=== PATIENT | female | born 1960 | race Caucasian/White ===

== ENCOUNTER → 2019-05-14 00:01 | Outpatient (RCR) | payer MEDICAID, SELFPAY | LOC: WOUND 04-16 11:30 | PROVIDERS: Family Provider Family Medicine; Visit Provider Podiatrist Foot & Ankle Surgery | DX: T63.301A Toxic effect of unspecified spider venom, accidental (unintentional), initial encounter (principal); Y92.9 Unspecified place or not applicable | CPT/HCPCS: 93922 ==

== ENCOUNTER 2019-05-28 12:23 | Day surgery (SDC) | payer MEDICAID, SELFPAY ==
[2019-05-24 10:45] VITALS: BMI 51.2
--- NOTE | 2019-05-24 11:05 | ANES.PREANES ---
Pre-Anesthetic Assessment Pre-Anesthetic Assessment: Height/Weight: Height 1.7 m Weight 148.325 kg Preop Diagnosis: hematochezia Proposed Procedure: Operation Date: 05/28/19 14:10 Proposed Procedures p EGD 02706, 11447 K21.9, Z12.11(Not Applicable) - Alex Harris MD s Colonoscopy(Not Applicable) - Alex Harris MD Familial anesthetic complications: No trouble Social: Social History: No alcohol and No tobacco Exam: Pre-Anes Outpt Exam: alert, oriented x 3, clear to auscultation bilaterally and regular rate & rhythm Airway: Cervical ROM: WNL MP: 1 Dentition: Full Pulmonary: Pulmonary: COPD CV/HEM: CV/HEM: Afib, CHF and HTN : : None reported Hepatic: Hepatic: None reported GI: GI: None reported Metabolic: Metabolic: Morbid obesity and Thyroid Musc/skel: Musc/skel: Fibromyalgia Neuropsych: Neuropsych: None reported Anesthetic Plan: ASA status: III Anesthesia: MAC Risk of > 500 ml blood loss (7ml/kg in children): No PFSH Anesthesia PFSH: Social History (Updated 05/24/19 @ 10:33 by Luiza Andersen RN) Smoking and tobacco status: never smoked Data Anesthesia Cardiac Studies: No Data to Display
[2019-05-28 13:20] VITALS: BP 117/64; PULSE 60; RESP 18; TEMP 36.4; O2SAT 95
[2019-05-28] MEDS: sodium chloride 0.9% 1,000 ML 30 ML IV (13:28)
--- NOTE | 2019-05-28 13:28 | PM.HPUD ---
H&P update H&P Update: DATE OF SURGERY/PROCEDURE: 05/28/19 DATE H&P PERFORMED: 05/10/19 H&P UPDATE INFORMATION: H&P completed within last 30 days and No changes to prior documentation PREOP DIAGNOSIS: Anemia and bleeding per rectum PLANNED PROCEDURE: Operation Date: 05/28/19 13:40 Proposed Procedures p EGD 41047, 38789 K21.9, Z12.11(Not Applicable) - Alex Harris MD s Colonoscopy(Not Applicable) - Alex Harris MD Full H&P Medications/Allergies: Current Medications: Current Medications Generic Name Dose Route Start Last Admin Trade Name Freq PRN Reason Stop Dose Admin Sodium Chloride 1,000 mls @ 30 ml s/hr 05/28/19 12:15 05/28/19 13:28 Sodium Chloride 0.9% IV 30 mls/hr .Q24H RENALDO Administration Perinent History: Social History: Social History Smoking and tobacco status: never smoked
[2019-05-28] MEDS: midazolam 1 mg/mL INJ 2 mL 2 MG IVP (13:37)
[2019-05-28 14:18] VITALS: BP 139/73; PULSE 66; RESP 18; TEMP 36.6; O2SAT 96
[2019-05-28 14:45] VITALS: BP 139/73; PULSE 70; RESP 18; O2SAT 95
--- NOTE | 2019-05-28 14:53 | ANE.PACU ---
 Inpatient post-anesthesia follow up: Airway intact: Yes Vital signs: Temperature 97.9 F Pulse Rate [Right Radial] 66 Respiratory Rate 18 Blood Pressure [Ri ght Arm] 139/73 Pulse Oximetry 96 Oxygen Delivery Me thod Room Air Oxygen Flow Rate Fraction of Inspir ed Oxygen Hydration adequate: Yes Nausea and vomiting: No Mental status: Baseline
== END 2019-05-28 15:00 | disposition home or self-care (01) ==
PROVIDERS: Family Provider Family Medicine; PCP Family Medicine; Visit Provider Surgery
PROC: 0DJ08ZZ Inspection of Upper Intestinal Tract, Via Natural or Artificial Opening Endoscopic (ICD-10-PCS; CPT 43235; principal; 2019-05-28 13:30)
PROC: 0DJD8ZZ Inspection of Lower Intestinal Tract, Via Natural or Artificial Opening Endoscopic (ICD-10-PCS; CPT 45378; 2019-05-28 13:30)
DX: Z12.11 Encounter for screening for malignant neoplasm of colon (principal); D64.9 Anemia, unspecified; K21.9 Gastro-esophageal reflux disease without esophagitis; E78.5 Hyperlipidemia, unspecified; M19.90 Unspecified osteoarthritis, unspecified site; I48.91 Unspecified atrial fibrillation; F32.9 Major depressive disorder, single episode, unspecified; F41.1 Generalized anxiety disorder; E03.9 Hypothyroidism, unspecified; Z79.01 Long term (current) use of anticoagulants; Z79.891 Long term (current) use of opiate analgesic; I11.0 Hypertensive heart disease with heart failure; I50.9 Heart failure, unspecified; E66.01 Morbid (severe) obesity due to excess calories; Z68.43 Body mass index [BMI] 50.0-59.9, adult; M79.7 Fibromyalgia
CPT/HCPCS: 45378; 12345; J2001; J2250; J2704; J7030

== ENCOUNTER 2019-06-25 10:52 | Outpatient (CLI) | payer MEDICAID, SELFPAY | END 2019-06-25 10:53 | disposition home or self-care (01) | LOC: RAD 10:52 | PROVIDERS: Family Provider Family Medicine; PCP Family Medicine; Visit Provider Podiatrist Foot & Ankle Surgery | DX: Z76.89 Persons encountering health services in other specified circumstances (principal) ==

== ENCOUNTER 2019-07-17 11:41 | Day surgery (SDC) | payer MEDICAID, SELFPAY ==
[2019-07-12 14:02] VITALS: BMI 50.8
[2019-07-17 12:20] VITALS: BP 141/61; PULSE 58; RESP 18; TEMP 36.6; O2SAT 95
[2019-07-17] MEDS: sodium chloride 0.9% 1,000 ML 30 ML IV (12:27)
--- NOTE | 2019-07-17 12:51 | W.PM.OPSUD ---
Surgery/Procedure H&P Update DATE OF PROCEDURE: July 17, 2019 DATE H&P PERFORMED: 07/12/19 H&P UPDATE INFORMATION: I have reviewed H&P completed within last 30 days, I have examined patient prior to procedure and No changes to prior documentation PREOP DIAGNOSIS: Wound left thigh PLANNED PROCEDURE: Operation Date: 07/17/19 13:10 Proposed Procedures p Debridement of left thigh wound 10560 T63.301A(Left) - Lexa Barba MD
--- NOTE | 2019-07-17 13:43 | P.ANESASSM_ITS ---
Pre-Anesthetic Assessment Pre-Anesthetic Assessment: Height/Weight: Height 1.7 m Weight 147.418 kg Temp Pulse Resp BP Pulse Ox 97.8 F 58 L 18 141/61 95 07/17/19 12:20 07/17/19 12:20 07/17/19 12:20 07/17/19 12:20 07/17/19 12:20 Preop Diagnosis: Wound left thigh Proposed Procedure: Operation Date: 07/17/19 13:10 Proposed Procedures p Debridement of left thigh wound 82539 T63.301A(Left) - Lexa Barba MD Familial anesthetic complications: denies Was Beta Layne taken within 24 h ours: Yes Last intake: Intake Last Liquid Date 07/16/19 Last Liquid Time 22:30 Last Solid Date 07/16/19 Last Solid Time 22:30 Exam: Pre-Anes Outpt Exam: alert, oriented x 3 and clear to auscultation bilaterally Airway: Submandibular: WNL Cervical ROM: WNL MP: 1 History/ROS: No significant history except as noted Pulmonary: Pulmonary: COPD and SOB CV/HEM: CV/HEM: Afib and HTN : : None reported Hepatic: Hepatic: None reported GI: GI: None reported Metabolic: Metabolic: Morbid obesity and Thyroid Musc/skel: Musc/skel: Fibromyalgia Neuropsych: Neuropsych: Anxiety and Depression Anesthetic Plan: ASA status: 3 Anesthesia: Anesthesia Evaluation and MAC Risk of > 500 ml blood loss (7ml/kg in children): No Meds/Allergies Current Medications: Current Medications Generic Name Dose Route Start Last Admin Trade Name Freq PRN Reason Stop Dose Admin Sodium Chloride 1,000 mls @ 30 ml s/hr 07/17/19 12:00 07/17/19 12:27 Sodium Chloride 0.9% IV 07/18/19 11:59 30 mls/hr .Q24H RENALDO Administration PFSH Anesthesia PFSH: Social History Smoking and tobacco status: never smoked Alcohol intake: never Data Anesthesia Cardiac Studies: No Data to Display
[2019-07-17 14:42] VITALS: BP 129/71; PULSE 70; RESP 18; TEMP 36.6; O2SAT 96
--- NOTE | 2019-07-17 15:08 | PM.OP ---
Operative Report Date of procedure: July 17, 2019 Pre-op Diagnosis: Chronic wound left thigh measuring 15 x 1 x 1 cm Post-op diagnosis: same Procedure Done: Excisional debridement of chronic wound left thigh measuring 15 x 3 x 3cm Pathology: none sent Surgeon: Lexa Barba Estimated blood loss (mL): 10 Condition: stable Disposition: PACU Procedure: The patient was taken to the operating room and placed in the left lateral position under MAC after IV antibiotic had been administered. The chronic wound on the left thigh measured 15 cm deep and 1 x 1 cm at the skin level. Using 15 blade excisional debridement of chronic scar tissue was performed until punctate bleeding was noted from the wound edges. Excision was carried to the depth of the wound with the final wound measuring 15 x 3 x 3 cm. The wound was irrigated saline, hemostasis ensured and packed with Kerlix gauze and covered with ABDs. The patient was transferred to same-day surgery in stable condition. The patient will follow-up in wound care clinic
[2019-07-17 15:20] VITALS: BP 138/87; PULSE 65; RESP 18; O2SAT 98
[2019-07-17] MEDS: HYDROcodone-acetaminophen 5-325 mg Tablet 1 TAB PO (16:00)
== END 2019-07-17 16:15 | disposition home or self-care (01) ==
PROVIDERS: Family Provider Family Medicine; PCP Family Medicine; Visit Provider Surgery
PROC: (CPT 11044; principal; 2019-07-17 13:10)
DX: S71.102A Unspecified open wound, left thigh, initial encounter (principal); X58.XXXA Exposure to other specified factors, initial encounter; J44.9 Chronic obstructive pulmonary disease, unspecified; I48.91 Unspecified atrial fibrillation; I10 Essential (primary) hypertension; E66.01 Morbid (severe) obesity due to excess calories; Z68.43 Body mass index [BMI] 50.0-59.9, adult; M79.7 Fibromyalgia; F41.9 Anxiety disorder, unspecified; F32.9 Major depressive disorder, single episode, unspecified; E78.5 Hyperlipidemia, unspecified; Z86.73 Personal history of transient ischemic attack (TIA), and cerebral infarction without residual deficits
CPT/HCPCS: 11044; 11047 ×2; 12345; 96365; J2001; J2250; J2704; J3010; J7030

== ENCOUNTER 2020-02-07 10:46 | Outpatient (CLI) | payer MEDICAID, SELFPAY ==
--- NOTE | 2020-02-07 12:03 | ECG_ITS ---
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 Measurements Intervals [place] Rate: 93 P: NM: -1 QRS: 9 QRSD: 96 T: 182 QT: 378 QTc: 471 Interpretive Statements ATRIAL FIBRILLATION WITH ABERRANT CONDUCTION OR VENTRICULAR PREMATURE COMPLEXES ST DEVIATION AND MODERATE T-WAVE ABNORMALITY, CONSIDER LATERAL ISCHEMIA [-0.1+ mV T WAVE IN I/aVL/V5/V6] Compared to ECG 01/15/2019 18:26:17 Ventricular premature complex(es) now present Aberrant conduction of supraventricular beat(s) now present Possible ischemia now present Prolonged QT interval no longer present T-wave abnormality still present Electronically Signed On 02-07-2020 16:31:27 CDT by Ricardo Mayer M.D. [id number] f
== END 2020-02-07 10:47 | disposition home or self-care (01) ==
PROVIDERS: PCP Family Medicine; Visit Provider Family Medicine
DX: I48.20 Chronic atrial fibrillation, unspecified (principal)
CPT/HCPCS: 93005

== ENCOUNTER 2020-02-17 13:15 | Emergency (ER) | payer MEDICAID, SELFPAY ==
[2020-02-17] VITALS (8 sets, daily range): BP systolic 112–122; BP diastolic 62–68; PULSE 88–135; RESP 16–26; TEMP 38; O2SAT 92–97; BMI 70.8
--- NOTE | 2020-02-17 13:28 | ECG_ITS ---
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 Measurements Intervals [place] Rate: 104 P: CT: -1 QRS: 33 QRSD: 99 T: 178 QT: 331 QTc: 436 Interpretive Statements ATRIAL FIBRILLATION WITH RAPID VENTRICULAR RESPONSE ST DEVIATION AND MODERATE T-WAVE ABNORMALITY, CONSIDER LATERAL ISCHEMIA [-0.1+ mV T WAVE IN I/aVL/V5/V6] ST DEVIATION AND MODERATE T-WAVE ABNORMALITY, CONSIDER INFERIOR ISCHEMIA [-0.1+ mV T WAVE IN II/aVF] Compared to ECG 02/07/2020 11:54:14 Ventricular premature complex(es) no longer present Aberrant conduction of supraventricular beat(s) no longer present T-wave abnormality still present Possible ischemia still present Electronically Signed On 02-17-2020 17:34:47 CDT by Ricardo Mayer M.D. [id number] johnson
--- NOTE | 2020-02-17 13:28 | XR_ITS ---
WS: [id number] XR chest 1V portable [id number] REASON FOR EXAM: cough FINDINGS: The examination has significant motion artifact which degrades the diagnostic quality considerably. I t appears that there is marked enlargement of the cardiac silhouette. There are ill-defined densities in both mid and lower lungs. Marked tortuosity thoracic aorta with deviation of the trachea left of the right. XR/XR chest 1V portable [id number] IMPRESSION: Suboptimal examination with findings as noted above. Repeat portable or PA and lateral upright chest recommended.
--- NOTE | 2020-02-17 13:38 | W.ED.ANXIETY ---
HPI - Anxiety General: Chief Complaint: Anxiety Stated Complaint: COVID + Time Seen by Provider: 02/17/20 13:17 History of Present Illness: HPI narrative: 59-year-old female brought in by EMS. Patient presents due to anxiety from being diagnosed with COVID. Patient was diagnosed with COVID yesterday. Since then she has been extremely anxious and is now having hard time keeping anything down. She does have little bit of cough and mild fever. She does not have any shortness of breath. Patient gets very anxious when answering questions about her diagnosis. Associated symptoms: Reports fever(s), nausea, palpitations and vomiting; Deny chest pain, chills or headache(s) Review of Systems Const: Reports: fever(s); Denies: chills Eyes: Denies: change in vision or blurry vision ENMT: Denies: throat pain or ear or mastoid pain Card: Reports: palpitations and irregular heart rhythm (History of atrial fib); Denies: chest pain Resp: Reports: non-productive cough; Denies: dyspnea or wheezing GI: Reports: nausea and vomiting; Denies: abdominal pain : Denies: flank pain or difficulty voiding Musc: Denies: neck pain or back pain Skin/Breast: Denies: rash Neuro: Denies: headache(s) Psych: Reports: anxiety All/Imm: Denies: urticaria or throat swelling [facility] ED PFSH: Medical History Anxiety Atrial fibrillation EKG showed atrial fibrillation with a controlled ventricular response rate. Some nonspecific ST-T changes, cannot exclude ischemia. Otherwise unremarkable. Compared to the previous EKG, there is no significant change. Depression Dyslipidemia (high LDL; low HDL) Hammer toe of left foot Hypertension Hypothyroidism TIA (transient ischemic attack) Surgical History S/P excisional debridement 07/15/19: left thigh Social History Smoking and tobacco status: never smoked Alcohol intake: never Physical Exam Const: COMMON NORMALS: patient oriented x3 GENERAL APPEARANCE: well kempt and anxious NUTRITIONAL APPEARANCE: obese morbidly obese ORIENTATION/CONSCIOUSNESS: Yes awake, Yes oriented to person and Yes oriented to place Eye: COMMON NORMALS: Equal, round and reactive pupils present and EOMs intact bilaterally PUPIL: Yes Equal, round and reactive pupils present Resp: COMMON NORMALS: normal respiratory effort, No retractions and No use of accessory muscles Cardio: COMMON NORMALS: Peripheral pulses 2+ throughout RATE: tachycardic RHYTHM: abnormal rhythm irregularly irregular PERIPHERAL PULSES: Peripheral pulses 2+ throughout GI: COMMON NORMALS: Soft to palpation and non-tender PALPATION: Yes Soft to palpation Extremity: COMMON NORMALS: normal to inspection and capillary refill normal Neuro: COMMON NORMALS: patient oriented x3, CN's II-XII intact bilaterally and no focal motor deficits SENSORIUM/ORIENTATION: Yes oriented to person and Yes oriented to place Psych: APPEARANCE: Yes well kempt ATTITUDE: Yes Other attitude/behavior findings present (Psych) (Extremely anxious) MOOD & AFFECT: Yes anxious and Yes fearful Course Vital Signs: Vital signs: Vital Signs Temperature 100.4 F H 02/17/20 22:17 Pulse Rate 88 02/17/20 22:17 Respiratory Rate 18 02/17/20 22:17 Blood Pressure 117/62 02/17/20 22:17 Pulse Oximetry 97 02/17/20 22:17 MDM - Anxiety MDM Narrative: Medical decision making narrative: Patient is a COVID positive. Patient with atrial flutter with RVR that responded appropriately to fluids p.o. and IV Cardizem. Patient does have mild O2 need. Patient will be transferred to [facility] since we do not have any COVID beds available here. Patient was transferred in stable condition. Called and discussed with who graciously accepted. Medical Records: Attestation: I reviewed the patient's medical records. Imaging Data^: CXR: Attestation: I personally reviewed and interpreted this imaging study as follows: My impression: bilateral opacities Radiologist's impression: XRay Report Signed Patient: Tanai Atkinson #: [id number] : 1Acct#:[id number] Age/Sex: 59 / FADM Date: 02/17/20 Loc: ERRoom/Bed: Attending Dr: Ordering Provider/Ordering MD: Edvin Clement DO Date of Service: 02/17/20 Procedure(s): XR chest 1V portable [id number] Accession Number(s): [id number] Report Number: [id number] WS: [id number] XR chest 1V portable [id number] REASON FOR EXAM: cough FINDINGS: The examination has significant motion artifact which degrades the diagnostic quality considerably. It appears that there is marked enlargement of the cardiac silhouette. There are ill-defined densities in both mid and lower lungs. Marked tortuosity thoracic aorta with deviation of the trachea left of the right. EKG Data^: EKG 1: Attestation: I personally reviewed and interpreted this EKG as follows: EKG interpretation date: 02/17/20 EKG interpretation time: 13:22 Prior EKG tracings: available for review Ischemic changes: non-specific ST-T wave changes and other Interpretation: Chest X-Ray 02/17/20 13:28 IMPRESSION: Suboptimal examination with findings as noted above. Repeat portable or PA and lateral upright chest recommended. Afib, rate 104, similar to ekg 02/07/20 Other EKG comments: Chest X-Ray 02/17/20 13:28 IMPRESSION: Suboptimal examination with findings as noted above. Repeat portable or PA and lateral upright chest recommended. ABG Data^: ABG Interpretation 1: Attestation: I personally reviewed and interpreted this ABG as follows: Interpretation: mild hypoxia, normal ph Lab Data: Attestation: I reviewed the patient's lab results. Labs: Lab Results 02/17/20 02/17/20 02/17/20 Range/Units 14:09 14:09 14:09 WBC 17.5 H (4.0-10.0) 10^3/ uL RBC 3.88 L (4.1-5.3) 10^6/u L Hgb 13.0 (11.5-15.3) g/dL Hct 40.6 (37.0-47.0) % MCV 104.6 H (81-99) fL MCH 33.5 (28.0-34.0) pg MCHC 32.0 (30.0-36.0) g/dL RDW 15.7 H (12.1-15.1) % Plt Count 253 (130-400) 10^3/c mm MPV 11.6 H (7.4-10.4) fL Neut % (Auto) 87.7 % Lymph % (Auto) 5.7 % [place] % (Auto) 5.8 % Eos % (Auto) 0.0 % Baso % (Auto) 0.2 % Neut # (Auto) 15.37 H (1.8-7.7) 10^3/u L Lymph # (Auto) 1.0 (0.8-4.8) 10^3/u L [place] # (Auto) 1.0 H (0.2-0.9) 10^3/u L Eos # (Auto) 0.0 (0.0-0.8) 10^3/u L Baso # (Auto) 0.0 (0.0-0.1) 10^3/u L Nucleated RBC % (a uto) 0 % Nucleated RBCs # 0.0 /100WBC Sodium 136 (136-145) mmol/L Potassium 4.6 (3.5-5.1) mmol/L Chloride 96 L (98-107) mmol/L Carbon Dioxide 29 (22-29) mmol/L Anion Gap 15.6 (5-19) BUN 22 H (6-20) mg/dL Creatinine 1.3 H (0.5-0.9) mg/dL GFR Calculation 41.9 L (90-130) mL/min Glucose 158 H (65-115) mg/dL Calculated Osmolal ity 289 (285-295) mOsm/k g Lactic Acid 1.4 (0.5-2.2) mmol/L Calcium 9.0 (8.5-10.5) mg/dL Total Bilirubin 1.0 (0.15-1.2) mg/dL AST 13 (0-32) U/L ALT 7 (0-33) U/L Alkaline Phosphata se 167 H (35-105) IU/L C-Reactive Protein 243.5 H (0.0-4.9) mg/L Total Protein 6.9 (6.6-8.7) g/dL Albumin 3.6 (3.5-5.2) g/dL Globulin 3.3 (1.3-4.6) g/dL SARS-CoV-2 Ag (Rap id) (Negative) 02/17/20 Range/Units 19:35 WBC (4.0-10.0) 10^3/ uL RBC (4.1-5.3) 10^6/u L Hgb (11.5-15.3) g/dL Hct (37.0-47.0) % MCV (81-99) fL MCH (28.0-34.0) pg MCHC (30.0-36.0) g/dL RDW (12.1-15.1) % Plt Count (130-400) 10^3/c mm MPV (7.4-10.4) fL Neut % (Auto) % Lymph % (Auto) % [place] % (Auto) % Eos % (Auto) % Baso % (Auto) % Neut # (Auto) (1.8-7.7) 10^3/u L Lymph # (Auto) (0.8-4.8) 10^3/u L [place] # (Auto) (0.2-0.9) 10^3/u L Eos # (Auto) (0.0-0.8) 10^3/u L Baso # (Auto) (0.0-0.1) 10^3/u L Nucleated RBC % (a uto) % Nucleated RBCs # /100WBC Sodium (136-145) mmol/L Potassium (3.5-5.1) mmol/L Chloride (98-107) mmol/L Carbon Dioxide (22-29) mmol/L Anion Gap (5-19) BUN (6-20) mg/dL Creatinine (0.5-0.9) mg/dL GFR Calculation (90-130) mL/min Glucose (65-115) mg/dL Calculated Osmolal ity (285-295) mOsm/k g Lactic Acid (0.5-2.2) mmol/L Calcium (8.5-10.5) mg/dL Total Bilirubin (0.15-1.2) mg/dL AST (0-32) U/L ALT (0-33) U/L Alkaline Phosphata se (35-105) IU/L C-Reactive Protein (0.0-4.9) mg/L Total Protein (6.6-8.7) g/dL Albumin (3.5-5.2) g/dL Globulin (1.3-4.6) g/dL SARS-CoV-2 Ag (Rap id) Positive H (Negative) Discharge Plan Discharge Patient Disposition: Xfer Short-Term Hosp Clinical Impression: Pneumonia due to 2019 novel coronavirus Atrial fibrillation Qualifiers: Atrial fibrillation type: unspecified Qualified Code(s): I48.91 - Unspecified atrial fibrillation Condition: Stable Referrals: Deb Lala MD [Primary Care Provider] - Discharge Date/Time: 02/17/20 22:20 Coding Level of Care Code ED Tube Cleaner for g Fwd Exam Comprehensive
[2020-02-17] MEDS: ondansetron 2 mg/ML SDV 2 mL 4 MG IV (14:05)
[2020-02-17] MEDS: lactated ringers 1,000 ML 999 ML IV (14:05)
[2020-02-17 14:21] LABS: Basophils % 0.2 %; Hematocrit 40.6 % (37.0-47.0); Lymphocytes % 5.7 %; Mean Corpuscular Hemoglobin 33.5 pg (28.0-34.0); Mean Corpuscular Volume 104.6 fL (81-99); Mean Platelet Volume 11.6 fL (7.4-10.4); Monocytes % 5.8 %; Neutrophils # 15.37 10^3/uL (1.8-7.7); Neutrophils % 87.7 %; Nucleated Red Blood Cells % 0 %; Platelet Count 253 10^3/cmm (130-400); Red Blood Count 3.88 10^6/uL (4.1-5.3); Red Cell Distribution Width 15.7 % (12.1-15.1); White Blood Count 17.5 10^3/uL (4.0-10.0)
[2020-02-17 14:40] LABS: Alanine Aminotransferase 7 U/L (0-33); Albumin Level 3.6 g/dL (3.5-5.2); Alkaline Phosphatase 167 IU/L (35-105); Anion Gap 15.6 (5-19); Aspartate Amino Transferase 13 U/L (0-32); Blood Urea Nitrogen 22 mg/dL (6-20); Carbon Dioxide 29 mmol/L (22-29); Chloride 96 mmol/L (98-107); Globulin 3.3 g/dL (1.3-4.6); Glomerular Filtration Rate 41.9 mL/min (90-130); Glucose 158 mg/dL (65-115); Osmolality Calculated 289 mOsm/kg (285-295); Potassium 4.6 mmol/L (3.5-5.1); Sodium 136 mmol/L (136-145); Total Protein 6.9 g/dL (6.6-8.7)
[2020-02-17 14:41] LABS: Lactic Sepsis W/Reflex 1.4 mmol/L (0.5-2.2)
[2020-02-17 15:01] LABS: C Reactive Protein 243.5 mg/L (0.0-4.9)
[2020-02-17] MEDS: dexamethasone 10 mg/mL INJ IVP (15:26)
[2020-02-17] MEDS: sodium chloride 0.9% 1,000 ML 100 ML IV (16:28)
[2020-02-17] MEDS: LORazepam 2 mg/mL INJ 1 mL 1 MG IVP (17:16)
[2020-02-17] MEDS: dilTIAZem 60 mg Tablet 30 MG PO (17:16)
[2020-02-17] MEDS: metoprolol tartrate 1 mg/1 mL SDV 5 mL 5 MG IV (18:25)
[2020-02-17 20:13] LABS: SARS Covid-2 Antigen Positive (Negative)
== END 2020-02-17 22:20 | disposition short-term general hospital (02) ==
PROVIDERS: Emergency Provider Student in an Organized Health Care Education/Training Program; PCP Family Medicine
DX: U07.1 COVID-19 (principal); J12.89 Other viral pneumonia; I48.91 Unspecified atrial fibrillation; E78.5 Hyperlipidemia, unspecified; I10 Essential (primary) hypertension; Z86.73 Personal history of transient ischemic attack (TIA), and cerebral infarction without residual deficits
CPT/HCPCS: 12345; 36415; 71045; 80053; 83605; 85025; 86140; 87426; 93005; 96365; 96375; 96376; 99283; 99285; J1100; J2060; J2405; J3490; J7030